=== PATIENT | male | born 1955 | race Caucasian/White ===

== ENCOUNTER 2017-02-21 10:51 | Emergency (ER) | payer BC ==
[~2017-02-21] VITALS: Ht 182.9 cm; Wt 99.2 kg
[~2017-02-21 10:51] MED LIST: ACTOPLUS MET1 TABLE1 PO; AMARYL2 MG PO; CRESTOR5 MG PO; JANUVIA100 MG PO; LISINOPRIL10 MG PO; NORCO 5/3251 TABLET PO
[2017-02-21 11:33] LABS: HEMATOCRIT 40.1 % (38.0-50.0); MCH 27.9 PG (29.0-34.0); MCHC 31.4 G/DL (30.0-36.0); MCV 88.9 FL (86-99); MEAN PLAT.VOLUME 9.8 uM^3 (9.0-12.4); PLATELET COUNT 255 K/uL (156-360); RBC DIS.WIDTH-CV 14.1 % (11.8-14.6); RBC DIS.WIDTH-SD 45.5 % (39-53); RED BLOOD COUNT 4.51 M/uL (4.00-5.50); WHITE BLOOD COUNT 5.7 K/uL (4.1-10.2)
[2017-02-21 11:43] LABS: CHLORIDE 102 mEq/L (99-109); SODIUM 139 mEq/L (136-147)
[2017-02-21 11:46] LABS: GLUCOSE 144 mg/dL (70-99)
[2017-02-21 11:47] LABS: ADD MIUA? NO; BILIRUBIN NEGATIVE; BLOOD NEGATIVE; COLOR YELLOW ((YELLOW)); GLUCOSE (STRIP) NEGATIVE; KETONES NEGATIVE; LEUKOCYTES NEGATIVE; NITRITE NEGATIVE; PROTEIN (STRIP) NEGATIVE; SPECIFIC GRAVITY 1.011 (1.000-1.030); UCUL ADDED? NO; UROBILINOGEN 0.2 MG/DL (0.2-1.0)
[2017-02-21 11:47] LABS: ANION GAP 10 MEQ/L (2-14)
[2017-02-21 11:48] LABS: TOTAL BILIRUBIN 0.3 mg/dL (0.0-1.0)
[2017-02-21 11:49] LABS: ALKALINE PHOSPHATASE 80 IU/L (3-129); GFR ESTIMATE (CALCULATED) > 59 mL/min/
[2017-02-21 11:50] LABS: UREA NITROGEN (BUN) 13 mg/dL (9-23)
[2017-02-21] MEDS ORDERED: NAPROXEN500 MG PO (13:08)
[2017-02-21] MEDS ORDERED: LIDODERM 5% P1 PATCH TD (13:32)
[2017-02-21 13:59] VITALS: BP 160/73
== END 2017-02-21 14:02 | disposition home or self-care (01) ==
LOC: EME 10:51
PROVIDERS: Physician Assistant
DX: K63.89 Other specified diseases of intestine (principal); M54.32 Sciatica, left side; R19.7 Diarrhea, unspecified; E11.9 Type 2 diabetes mellitus without complications; Z79.84 Long term (current) use of oral hypoglycemic drugs
CPT/HCPCS: 74177; 80048; 80053; 81003; 85027; 99281; 99285; J1885; J3010; J7120